=== PATIENT | female | born 1945 | race Caucasian/White ===

== ENCOUNTER 2021-03-19 14:39 | Emergency (ER) | payer MEDICARE, OTHER ==
[~2021-03-19] VITALS: Ht 162.6 cm; Wt 65.8 kg
[~2021-03-19 14:39] MED LIST: ACCUNEB0.63 MG/3 INH; ACIDOPHILUS LA1 EACH PO; ADVAIR 250-501 EACH INH; CALCIUM 600 +1 EA11 PO; DIOVAN HCT 1601 EACH PO; ELMIRON 100 MG100 M1 PO; FELDENE20 MG PO; FELODIPINE 5 MG5 M1 PO; FUROSEMIDE 20 M20 M1 PO; HYDROCODON-ACE1 EACH PO; MULTI VITAMIN1 EACH PO; OMEPRAZOLE 20 M20 M1 PO; PHENAZOPYRIDIN200 MG PO; POTASSIUM GLUCO90 MG PO; PREMPRO 0.625-1 EACH PO; PROLOPRIM100 MG PO; VANCOMYCIN100 MG/M1 PO
[2021-03-19 14:46] VITALS: BP 137/51
[2021-03-19] MEDS ORDERED: URELLE TABLET1 TAB PO (14:52)
[2021-03-19] MEDS ORDERED: AUGMENTIN 875-1 EACH PO (16:53)
== END 2021-03-19 17:22 | disposition home or self-care (01) ==
LOC: M.ERS 14:39
DX: S50.812A Abrasion of left forearm, initial encounter (principal); L03.114 Cellulitis of left upper limb; I10 Essential (primary) hypertension; Z88.8 Allergy status to other drugs, medicaments and biological substances; Z79.899 Other long term (current) drug therapy; Z98.51 Tubal ligation status; W55.01XA Bitten by cat, initial encounter; Y93.89 Activity, other specified; Y92.89 Other specified places as the place of occurrence of the external cause; Y99.9 Unspecified external cause status